=== PATIENT | male | born 1975 | race Caucasian/White ===

== ENCOUNTER 2017-08-10 01:47 | Inpatient (IN) | payer BC, OTHER ==
[2017-08-10] MEDS ORDERED: PROPOFOL 0 ML ONE (01:53)
[2017-08-10] MEDS ORDERED: Ondansetron ODT 4 MG TAB ONE (01:55)
[2017-08-10] MEDS ORDERED: Fentanyl 100 MCG/2 ML VIAL ONE ×4 (01:55→22:48)
[2017-08-10] MEDS ORDERED: Propofol 1,000 MG/100 ML VIAL IV ONE (01:58)
[2017-08-10] MEDS ORDERED: fentaNYL Citrate/PF 2,000 MCG in Sodium Chloride 0.9% 60 ML IV SCH (02:07)
[2017-08-10 02:18] LABS: Hemoglobin 13.7 g/dL (14.0-18.0); Mean Corpuscular Hemoglobin 37.2 pg (27.0-31.0); Mean Platelet Volume 7.1 fL (7.4-10.4); Platelet Count 272 thou/uL (130-400); RBC Distribution Width 13.1 % (11.5-14.5); Red Blood Cell (RBC) Count 3.69 mill/uL (4.70-6.10); White Blood Cell (WBC) Count 10.1 thou/uL (4.8-10.8)
[2017-08-10 02:27] LABS: PTT 23.1 SEC (22.9-36.1); Prothrombin Time 13.5 SEC (12.0-14.7)
[2017-08-10 02:41] LABS: #Eosinphils 0.1 thou/uL (0.0-0.7); #Lymphocytes 1.1 thou/uL (1.20-3.40); #Monocytes 0.8 thou/uL (0.11-0.59); #Neutrophils 8.1 thou/uL (1.40-6.50); %Basophils 0.2 % (0.0-1.0); %Eosinophils 0.5 % (0.0-10.0); %Lymphocytes 10.7 % (21.0-51.0); %Monocytes 8.3 % (0.0-10.0); %Neutrophils 80.4 % (42.0-75.0)
[2017-08-10 02:43] LABS: Base Excess (BEa) -7.8 mEq/L (-2.0 to +3.0); CO2 Tension 43.1 mmHg (35.0-45.0); Hematocrit-ABG 39.4 % (42.0-52.0); Hemoglobin (Hb) 12.7 g/dL (14.0-18.0); O2 Tension (PaO2) 121.7 mmHg (80.0-100.0); pH, Arterial 7.26 (7.35-7.45)
[2017-08-10 02:44] LABS: ALV-art Gradient 180.925 (0-20); Analyzer IN Cardio ER; Calcium, Ionized 1.2 mmol/L (1.12-1.30); Puncture Site LRA
[2017-08-10 03:04] LABS: ALT (SGPT) 57 U/L (8-55); AST (SGOT) 167 U/L (5-34); Albumin 3.4 g/dL (3.5-5.0); Alcohol 166 mg/dL (Less than 10); Alkaline Phosphatase 52 U/L (40-150); Anion Gap 14 mmol/L (10-20); BUN (Urea Nitrogen) 12 mg/dL (8.9-20.6); Bilirubin, Total 0.3 mg/dL (0.2-1.2); CK (CPK) 850 U/L (30-200); Calc. Creatinine Clearance 0 mL/min (70-130); Calcium 7.9 mg/dL (7.8-10.44); Carbon Dioxide 17 mmol/L (22-29); Chloride 113 mmol/L (98-107); Estimated GFR-MDRD 54; Globulin 2.3 g/dL (2.4-3.5); Glucose 123 mg/dL (70-105); Lipase 16 U/L (8-78); Potassium 3.4 mmol/L (3.5-5.1); Protein, Total 5.7 g/dL (6.0-8.3); Sodium 141 mmol/L (136-145)
[2017-08-10] MEDS ORDERED: Dextrose 50% Abboject 50 ML SYRINGE SLOW IVP PRN (03:05)
[2017-08-10] MEDS ORDERED: Dextrose 5% in Water 1,000 ML IV PRN (03:05)
[2017-08-10] MEDS ORDERED: Morphine 4 MG/ML Carpuject IVP PRN (03:05)
[2017-08-10] MEDS ORDERED: Ventilator Sedation Protocol 1 EACH FS SCH (03:15)
[2017-08-10] MEDS ORDERED: Fentanyl BOLUS 250 ML IVPB PRN (03:17)
[2017-08-10] MEDS ORDERED: Morphine 4 MG/ML VIAL SLOW IVP PRN (03:17)
[2017-08-10] MEDS ORDERED: DISCONTINUE PREVIOUS NARCOTIC PAIN MEDICATIONS AND BENZODIAZEPINES FS SCH (03:17)
[2017-08-10] MEDS ORDERED: Lorazepam 2 MG/ML VIAL SLOW IVP PRN (03:17)
[2017-08-10] MEDS ORDERED: Propofol BOLUS 1,000 MG/100 ML VIAL IV PRN (03:17)
[2017-08-10] MEDS ORDERED: Propofol 1,000 MG/100 ML VIAL IV PRN (03:17)
[2017-08-10] MEDS ORDERED: Midazolam HCl 5 mg/ml Vial ONE (03:29)
[2017-08-10] MEDS ORDERED: Potassium Chloride 20 MEQ in Lactated Ringer's 1,000 ML IVPB SCH (03:30)
[2017-08-10 03:32] LABS: Bilirubin Negative (Negative); Blood, Urine Large (Negative); Clarity CLEAR (Clear); Glucose, Urine (Dipstick) Negative (Negative); Leukocyte Negative (Negative); Nitrite Negative (Negative); Protein, Urine (Dipstick) 30 mg/dL (Neg-Trace); Specific Gravity, Urine 1.005 (1.002-1.036); Urobilinogen 0.2 mg/dL (0.2-1.0)
[2017-08-10 03:47] LABS: Bacteria/HPF Rare-Few HPF (None Seen); Crystals/HPF 1+ AMORPH URATES HPF (Negative); Hyaline Casts/LPF NONE SEEN LPF (0-3 Hyaline); Medtox Reader # READER 4; RBC/HPF 0-3 HPF (0-3); Squamous Epithelial 0-3 HPF (0-3); WBC/HPF 0-3 HPF (0-3)
[2017-08-10 03:48] LABS: Amphetamine Not Detected (NotDetected); Barbiturates Screen Not Detected (NotDetected); Benzodiazepine Screen Not Detected (NotDetected); Cocaine Metabolite Screen Not Detected (NotDetected); Medtox Control Line Valid? VALID (VALID); Methadone Not Detected (NotDetected); Methamphetamine Not Detected (NotDetected); Opiate Screen Detected (NotDetected); Oxycodone Screen Not Detected (NotDetected); Phencyclidine (PCP) Not Detected (NotDetected); THC/Cannabinoid Screen Not Detected (NotDetected); Tricyclic Screen Not Detected (NotDetected)
[2017-08-10 03:56] LABS: #Lymphocytes 0.7 thou/uL (1.20-3.40); #Monocytes 1.2 thou/uL (0.11-0.59); #Neutrophils 8.6 thou/uL (1.40-6.50); %Basophils 0.2 % (0.0-1.0); %Eosinophils 0.4 % (0.0-10.0); %Lymphocytes 6.7 % (21.0-51.0); %Monocytes 11.7 % (0.0-10.0); Hemoglobin 12.9 g/dL (14.0-18.0); Mean Corpuscular Hemoglobin 37.3 pg (27.0-31.0); Mean Platelet Volume 7.1 fL (7.4-10.4); Platelet Count 246 thou/uL (130-400); RBC Distribution Width 13.1 % (11.5-14.5); Red Blood Cell (RBC) Count 3.45 mill/uL (4.70-6.10); White Blood Cell (WBC) Count 10.6 thou/uL (4.8-10.8)
[2017-08-10 04:13] LABS: Anion Gap 19 mmol/L (10-20); BUN (Urea Nitrogen) 12 mg/dL (8.9-20.6); Calc. Creatinine Clearance 0 mL/min (70-130); Calcium 8.9 mg/dL (7.8-10.44); Carbon Dioxide 15 mmol/L (22-29); Chloride 111 mmol/L (98-107); Estimated GFR-MDRD 50; Glucose 128 mg/dL (70-105); Potassium 3.8 mmol/L (3.5-5.1); Sodium 141 mmol/L (136-145)
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
[2017-08-10] MEDS: Albuterol Sulfate 1.25 MG/3 ML NEB NEB SCH ×5 (06:30→22:00)
[2017-08-10 07:00] LABS: Actual Bicarbonate (HCO3a) 16.6 mEq/L (22-28); CO2 Tension 34.7 mmHg (35.0-45.0); Hematocrit-ABG 35.7 % (42.0-52.0); O2 Tension (PaO2) 167.4 mmHg (80.0-100.0)
[2017-08-10 07:01] LABS: ALV-art Gradient 74.425 (0-20); Calcium, Ionized 1.1 mmol/L (1.12-1.30); Hemoglobin (Hb) 11.7 g/dL (14.0-18.0); Puncture Site ALINE
[2017-08-10 07:16] VITALS: BMI 32.3
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
[2017-08-10] MEDS ORDERED: Sodium Bicarbonate 100 MEQ in Dextrose 5% in Water 1,000 ML IV SCH (08:15)
[2017-08-10] MEDS ORDERED: DC Sedation Protocol FS ONE (09:04)
[2017-08-10] MEDS ORDERED: Communication Order-Pharmacy FS SCH (09:15)
[2017-08-10] MEDS ORDERED: Zolpidem Tartrate 5 MG TAB PO PRN (09:15)
[2017-08-10] MEDS ORDERED: diphenhydrAMINE 25 MG CAP PO PRN (09:15)
[2017-08-10] MEDS ORDERED: Ondansetron HCl/PF 4 MG/2 ML Vial IVP PRN ×2 (09:15→21:15)
[2017-08-10] MEDS ORDERED: Promethazine HCl 25 MG/ML VIAL IM PRN ×2 (09:15→21:15)
[2017-08-10] MEDS ORDERED: diphenhydrAMINE 50 MG/ML VIAL IM/IV PRN (09:15)
[2017-08-10] MEDS ORDERED: Naloxone HCl 0.4 mg/ml Vial IV PRN (09:15)
[2017-08-10] MEDS ORDERED: diphenhydrAMINE 50 MG/ML VIAL IM PRN (09:15)
[2017-08-10] MEDS ORDERED: Rib Fracture Protocol IV SCH (09:15)
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
--- NOTE | 2017-08-10 09:22 | RAD ---
PORTABLE SUPINE FRONTAL CHEST RADIOGRAPH: Date: 08-10-17 Time: 2:28 a.m. Comparison: 08-10-17 at 1:51 a.m. History: Central line placement. FINDINGS: Endotracheal tube terminates at level of clavicles. Nasogastric tube extends into the left upper quad rant, with distal tip in the region of the gastric fundus. Left sided vascular catheter present, dist al tip overlying the region of the right atrium. Hazy airspace disease noted in both lung bases which may represent contusion or volume loss. Osseous structures are not optimally assessed on this examin ation. Please refer to CT examination of the chest also performed 08-10-17. IMPRESSION: Bibasilar pulmonary parenchymal opacity. Lines and tubes as above. POS: [facility]
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
[2017-08-10] MEDS: HYDROmorphone 10 mg/100 ml CADD IVPB PRN ×2 (10:42→23:47)
[2017-08-10] MEDS: Sodium Bicarbonate 100 MEQ in Dextrose 5% in Water 1,000 ML IV SCH ×2 (10:43→17:05)
[2017-08-10] MEDS: Famotidine/PF 20 mg/2ml Vial SLOW IVP SCH (11:05)
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
[2017-08-10] MEDS: Acetaminophen 1,000 MG in Premix Bag 1 BAG IVPB SCH ×3 (11:30→23:53)
[2017-08-10] MEDS ORDERED: Lidocaine 1% PF 5 ML VIAL ONE (12:44)
[2017-08-10] MEDS ORDERED: Ondansetron HCl/PF 4 MG/2 ML Vial ONE (12:44)
[2017-08-10] MEDS ORDERED: PROPOFOL 200 MG/20 ML VIAL ONE (12:44)
[2017-08-10] MEDS ORDERED: Metoclopramide HCl 10 MG/2 ML VIAL ONE (12:44)
[2017-08-10] MEDS ORDERED: Glycopyrrolate 0.2 MG/ML 5 ML SYRINGE ONE (12:44)
[2017-08-10] MEDS ORDERED: Ketorolac Tromethamine 30 MG/ML VIAL ONE (12:44)
[2017-08-10] MEDS ORDERED: Dexamethasone 20 MG/5 ML VIAL ONE (12:44)
[2017-08-10] MEDS ORDERED: PHENYLEPHRINE-NS 100 MCG/ML 10 ML SYRINGE ONE ×3 (12:44→21:15)
[2017-08-10] MEDS ORDERED: Fentanyl 250 MCG/5 ML VIAL ONE (19:43)
[2017-08-10] MEDS ORDERED: Midazolam HCl 5 mg/5 ml Vial ONE (19:43)
[2017-08-10] MEDS ORDERED: Phenylephrine HCL 10 MG/ML VIAL ONE (20:46)
[2017-08-10] MEDS ORDERED: Meperidine HCl/PF 25 MG/ML VIAL SLOW IVP PRN (21:15)
[2017-08-10] MEDS ORDERED: Morphine Sulfate 2 MG/ML SYRINGE SLOW IVP PRN (21:15)
[2017-08-10] MEDS ORDERED: HYDROmorphone 2 MG/ML VIAL SLOW IVP PRN (21:15)
[2017-08-10] MEDS ORDERED: Promethazine HCl 25 MG/ML VIAL SLOW IVP PRN (21:15)
[2017-08-11] MEDS: Famotidine/PF 20 mg/2ml Vial SLOW IVP SCH ×3 (00:22→21:01)
[2017-08-11] MEDS: Albuterol Sulfate 1.25 MG/3 ML NEB NEB SCH ×6 (02:12→22:30)
[2017-08-11] MEDS: CEFAZOLIN/Water 2 GM/20 ML SYRINGE SLOW IVP SCH ×2 (03:27→12:06)
[2017-08-11 05:18] LABS: Anion Gap 13 mmol/L (10-20); BUN (Urea Nitrogen) 13 mg/dL (8.9-20.6); Calc. Creatinine Clearance 94 mL/min (70-130); Calcium 8.3 mg/dL (7.8-10.44); Carbon Dioxide 26 mmol/L (22-29); Chloride 106 mmol/L (98-107); Estimated GFR-MDRD 49; Glucose 175 mg/dL (70-105); Potassium 4.1 mmol/L (3.5-5.1); Sodium 141 mmol/L (136-145)
[2017-08-11 05:27] LABS: #Lymphocytes 0.2 thou/uL (1.20-3.40); #Monocytes 0.8 thou/uL (0.11-0.59); #Neutrophils 7.7 thou/uL (1.40-6.50); %Basophils 0.2 % (0.0-1.0); %Eosinophils 0.1 % (0.0-10.0); %Lymphocytes 2.3 % (21.0-51.0); %Monocytes 8.9 % (0.0-10.0); %Neutrophils 88.5 % (42.0-75.0); Hemoglobin 10.8 g/dL (14.0-18.0); Mean Corpuscular HGB CONC 34.7 g/dL (32.0-36.0); Mean Corpuscular Hemoglobin 38.3 pg (27.0-31.0); Mean Platelet Volume 7.5 fL (7.4-10.4); Platelet Count 199 thou/uL (130-400); RBC Distribution Width 13.2 % (11.5-14.5); Red Blood Cell (RBC) Count 2.83 mill/uL (4.70-6.10); White Blood Cell (WBC) Count 8.7 thou/uL (4.8-10.8)
[2017-08-11] MEDS: Sodium Bicarbonate 100 MEQ in Dextrose 5% in Water 1,000 ML IV SCH (05:48)
[2017-08-11] MEDS: Acetaminophen 1,000 MG in Premix Bag 1 BAG IVPB SCH (05:48)
--- NOTE | 2017-08-11 08:34 | RAD ---
RIGHT FEMUR TWO VIEWS: History: Intramedullary nail placement. Comparison: Radiograph same day. FINDINGS: Satisfactory appearance of intermedullary nail through the right femur. IMPRESSION: Satisfactory post-operative appearance. POS: [facility]
--- NOTE | 2017-08-11 08:49 | RAD ---
PORTABLE CHEST: History: Respiratory distress, pulmonary contusion. Comparison: 08-10-17 FINDINGS: Endotracheal and NG tubes have been removed. Left subclavian line is unchanged in position. Bibasilar lung changes show improvement as compared to the prior exam. IMPRESSION: Improving bibasilar lung change. POS: [facility]
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
[2017-08-11] MEDS ORDERED: HYDROmorphone 10 mg/100 ml CADD IVPB PRN (09:52)
[2017-08-11] MEDS ORDERED: Acetaminophen 500 MG TAB PO SCH (10:00)
[2017-08-11] MEDS ORDERED: Sodium Chloride 0.9% 1,000 ML IV SCH (10:00)
[2017-08-11] MEDS: HYDROcodone/Acetaminophen 10/325 mg Tablet PO SCH ×3 (12:05→23:18)
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
--- NOTE | 2017-08-11 15:29 | MRI ---
MR ANGIOGRAM BRAIN WITHOUT CONTRAST: HISTORY: Evaluate for carotid injury. COMPARISON: CT brain from the prior day. TECHNIQUE: MR angiogram of the brain is performed using the [id number] technique, and 3D rendering is provid ed. FINDINGS: The cap[place] band of [place] is patent. No evidence of dissection. No thrombosis. No hemodynamically signi ficant narrowing. The basilar artery is patent. Intradural vertebral arteries are patent and codominant. IMPRESSION: No evidence of vascular injury. POS: [facility]
[2017-08-11] MEDS ORDERED: Loratadine 10 MG TAB PO SCH (15:45)
[2017-08-11] MEDS: Doxepin HCl 25 MG CAP PO SCH (21:00)
[2017-08-12] MEDS: Albuterol Sulfate 1.25 MG/3 ML NEB NEB SCH ×6 (02:34→23:52)
[2017-08-12] MEDS ORDERED: Oxazepam 10 MG CAP PO SCH (04:30)
[2017-08-12 04:35] LABS: Anion Gap 16 mmol/L (10-20); BUN (Urea Nitrogen) 16 mg/dL (8.9-20.6); Calc. Creatinine Clearance 107 mL/min (70-130); Calcium 8.9 mg/dL (7.8-10.44); Carbon Dioxide 21 mmol/L (22-29); Chloride 109 mmol/L (98-107); Estimated GFR-MDRD 57; Glucose 113 mg/dL (70-105); Potassium 4.7 mmol/L (3.5-5.1); Sodium 141 mmol/L (136-145)
[2017-08-12 05:42] LABS: Band 3 % (5-11); Eosinophils 1 % (0-10); Hemoglobin 10.6 g/dL (14.0-18.0); Lymphocytes 14 % (21-51); MDiff Complete? YES; Macrocytosis MODERATE=16-30 cells (100X) (0-5/hpf); Mean Corpuscular HGB CONC 32.5 g/dL (32.0-36.0); Mean Corpuscular Hemoglobin 35.8 pg (27.0-31.0); Mean Platelet Volume 8.1 fL (7.4-10.4); Monocytes 11 % (0-10); Neutrophil 70 % (42-75); PLT Morphology Comment Appears Adequate; Platelet Count 172 thou/uL (130-400); RBC Distribution Width 13.4 % (11.5-14.5); Reactive Lymphocytes 1 % (0-10); Red Blood Cell (RBC) Count 2.97 mill/uL (4.70-6.10); White Blood Cell (WBC) Count 8.4 thou/uL (4.8-10.8)
[2017-08-12] MEDS: HYDROcodone/Acetaminophen 10/325 mg Tablet PO SCH ×4 (07:05→23:56)
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
[2017-08-12] MEDS: DULoxetine 60 MG CAP PO SCH (09:31)
[2017-08-12] MEDS: Multivitamin W/ Minerals 1 TAB PO SCH (09:31)
[2017-08-12] MEDS: Folic Acid 1 MG TAB PO SCH (09:31)
[2017-08-12] MEDS: Loratadine 10 MG TAB PO SCH (09:31)
[2017-08-12] MEDS: Senokot S 8.6-50 MG TAB PO SCH ×2 (09:41→22:34)
[2017-08-12] MEDS: Polyethylene Glycol 3350 17 GM Packet PO SCH (09:44)
[2017-08-12] MEDS: Famotidine/PF 20 mg/2ml Vial SLOW IVP SCH (09:45)
[2017-08-12] MEDS: Oxazepam 10 MG CAP PO SCH ×3 (11:50→23:56)
[2017-08-12] MEDS: Famotidine 20 MG TAB PO SCH ×2 (11:51→22:31)
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
[2017-08-12] MEDS: Doxepin HCl 25 MG CAP PO SCH (22:31)
[2017-08-13] MEDS ORDERED: Lactated Ringer's 1,000 ML IV SCH (00:01)
[2017-08-13] MEDS: Sodium Chloride 0.9% 1,000 ML IV SCH ×2 (01:06→09:11)
[2017-08-13] MEDS: Albuterol Sulfate 1.25 MG/3 ML NEB NEB SCH ×6 (02:30→22:43)
[2017-08-13 05:04] LABS: #Eosinphils 0.2 thou/uL (0.0-0.7); #Lymphocytes 0.8 thou/uL (1.20-3.40); #Monocytes 0.7 thou/uL (0.11-0.59); #Neutrophils 3.3 thou/uL (1.40-6.50); %Basophils 0.2 % (0.0-1.0); %Eosinophils 3.1 % (0.0-10.0); %Lymphocytes 15.9 % (21.0-51.0); %Monocytes 14.5 % (0.0-10.0); %Neutrophils 66.3 % (42.0-75.0); Hemoglobin 10.1 g/dL (14.0-18.0); Mean Corpuscular Hemoglobin 37.1 pg (27.0-31.0); Mean Platelet Volume 7.2 fL (7.4-10.4); Platelet Count 198 thou/uL (130-400); Red Blood Cell (RBC) Count 2.72 mill/uL (4.70-6.10)
[2017-08-13 05:16] LABS: Anion Gap 13 mmol/L (10-20); BUN (Urea Nitrogen) 16 mg/dL (8.9-20.6); Calc. Creatinine Clearance 130 mL/min (70-130); Calcium 9.4 mg/dL (7.8-10.44); Carbon Dioxide 25 mmol/L (22-29); Chloride 106 mmol/L (98-107); Estimated GFR-MDRD 71; Glucose 104 mg/dL (70-105); Magnesium 1.9 mg/dL (1.6-2.6); Phosphorus 2.5 mg/dL (2.3-4.7); Sodium 140 mmol/L (136-145)
[2017-08-13] MEDS ORDERED: Ropivacaine 0.2% HCl/PF 20 ML ONE (06:26)
[2017-08-13] MEDS ORDERED: Ropivacaine 0.2% HCl/PF 0 ML ONE (06:26)
[2017-08-13] MEDS ORDERED: Midazolam HCl 2 mg/2 ml Vial ONE (06:26)
[2017-08-13] MEDS ORDERED: Fentanyl 100 MCG/2 ML VIAL ONE ×2 (06:26→13:05)
[2017-08-13] MEDS ORDERED: Fentanyl 250 MCG/5 ML VIAL ONE (06:59)
[2017-08-13] MEDS ORDERED: CEFAZOLIN/Water 2 GM/20 ML SYRINGE ONE (07:06)
[2017-08-13] MEDS: HYDROcodone/Acetaminophen 10/325 mg Tablet PO SCH ×3 (07:29→18:20)
[2017-08-13] MEDS: Oxazepam 10 MG CAP PO SCH ×5 (07:29→19:28)
[2017-08-13] MEDS ORDERED: CEFAZOLIN/Water 2 GM/20 ML SYRINGE SLOW IVP SCH ×2 (07:30→14:00)
[2017-08-13] MEDS ORDERED: Promethazine HCl 25 MG/ML VIAL SLOW IVP PRN (08:20)
[2017-08-13] MEDS ORDERED: Ondansetron HCl/PF 4 MG/2 ML Vial IVP PRN (08:20)
[2017-08-13] MEDS ORDERED: Promethazine HCl 25 MG/ML VIAL IM PRN (08:20)
[2017-08-13] MEDS ORDERED: PHENYLEPHRINE-NS 100 MCG/ML 10 ML SYRINGE ONE ×5 (08:54→15:47)
[2017-08-13] MEDS ORDERED: Albumin 25% 100 ML ONE (08:56)
[2017-08-13] MEDS: Famotidine 20 MG TAB PO SCH ×2 (09:12→20:33)
[2017-08-13] MEDS: DULoxetine 60 MG CAP PO SCH ×2 (09:12→15:45)
[2017-08-13] MEDS: Loratadine 10 MG TAB PO SCH (09:12)
[2017-08-13] MEDS: Folic Acid 1 MG TAB PO SCH (09:12)
[2017-08-13] MEDS: Senokot S 8.6-50 MG TAB PO SCH ×2 (09:13→20:32)
[2017-08-13] MEDS: Multivitamin W/ Minerals 1 TAB PO SCH (09:13)
[2017-08-13] MEDS: Polyethylene Glycol 3350 17 GM Packet PO SCH (09:13)
[2017-08-13 10:38] LABS: #Eosinphils 0.1 thou/uL (0.0-0.7); #Lymphocytes 0.3 thou/uL (1.20-3.40); #Monocytes 0.6 thou/uL (0.11-0.59); #Neutrophils 3.6 thou/uL (1.40-6.50); %Basophils 0.6 % (0.0-1.0); %Eosinophils 1.7 % (0.0-10.0); %Lymphocytes 6.6 % (21.0-51.0); %Monocytes 12.4 % (0.0-10.0); %Neutrophils 78.8 % (42.0-75.0); Hemoglobin 7.4 g/dL (14.0-18.0); Mean Corpuscular HGB CONC 34.2 g/dL (32.0-36.0); Mean Corpuscular Hemoglobin 37.5 pg (27.0-31.0); Mean Platelet Volume 6.5 fL (7.4-10.4); Platelet Count 175 thou/uL (130-400); Red Blood Cell (RBC) Count 1.98 mill/uL (4.70-6.10); White Blood Cell (WBC) Count 4.5 thou/uL (4.8-10.8)
[2017-08-13] MEDS ORDERED: Phenylephrine HCL 10 MG/ML VIAL ONE (10:55)
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
--- NOTE | 2017-08-13 13:20 | RAD ---
RIGHT HIP 3 VIEWS: Date: 08/13/17 Three fluoroscopic views from OR present. INDICATION: Open reduction and internal fixation right acetabulum. FINDINGS/IMPRESSION: These films show plate and screws transfixing the right acetabulum. POS: [facility]
--- NOTE | 2017-08-13 13:22 | RAD ---
RIGHT HUMERUS: Date: 08/13/17 Two fluoroscopic views obtained in OR. INDICATION: Open reduction and internal fixation of right humerus with intraoperative imaging. FINDINGS/IMPRESSION: These films demonstrate plate and screws transfixing the proximal right humerus. POS: [facility]
[2017-08-13] MEDS ORDERED: Chloraseptic Spray 180 ml Bottle PO PRN (13:56)
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
[2017-08-13] MEDS: HYDROcodone/Acetaminophen 10/325 mg Tablet PO PRN (15:21)
[2017-08-13] MEDS ORDERED: Glycopyrrolate 0.2 MG/ML 5 ML SYRINGE ONE (15:47)
[2017-08-13] MEDS ORDERED: PROPOFOL 200 MG/20 ML VIAL ONE (15:47)
[2017-08-13] MEDS ORDERED: Vecuronium 10 MG VIAL ONE (15:47)
[2017-08-13] MEDS ORDERED: Hydrocortisone Sod Succ/PF 100 mg/2 ml Vial ONE (15:47)
[2017-08-13] MEDS ORDERED: Lidocaine 1% PF 5 ML VIAL ONE (15:47)
[2017-08-13] MEDS: CEFAZOLIN/Water 2 GM/20 ML SYRINGE SLOW IVP SCH (17:49)
[2017-08-13] MEDS ORDERED: cloNIDine 0.1 MG TAB PO SCH ×2 (19:00→23:59)
[2017-08-13] MEDS ORDERED: cloNIDine 0.2 MG TAB PO SCH (19:15)
--- NOTE | 2017-08-13 19:19 | CT ---
CT OF THE PELVIS 08/13/17 COMPARISON: 08/10/17 HISTORY: Pelvic fractures status post surgery. TECHNIQUE: Serial axial CT imaging at 3.75 mm intervals through the pelvis without contrast. Coronal and sagitta l reformatted imaging obtained. FINDINGS: Cutaneous meng are noted lateral to the right buttock musculature and proximal femur. There is pos toperative gas within the adjacent musculature and subcutaneous fat. As seen on prior imaging, the left ureter is dilated and demonstrates an anterior aberrant course. The urinary bladder contains a Briggs catheter and is decompressed. The imaged bowel demonstrates no acute findings. There is no widening of the pubic symphysis. The inferior pubic rami appear intact. There is no evide nce for widening of either sacroiliac joint. There is lower lumbar spine facet hypertrophy. No displa sandee sacral fracture is evident. There is an obliquely oriented fracture involving the acetabulum on the right which is comminuted and demonstrates no displacement following surgical correction. There is postoperative hardware associat ed with the anterior and posterior aspect of the acetabulum as well as the lateral acetabulum on the left. There is also an intramedullary narinder with a proximal interlocking screw within the right proxima l femur. Neither hip is dislocated. IMPRESSION: Right sided pelvic fractures status post ORIF as detailed above. POS: [facility]
[2017-08-13] MEDS: Doxepin HCl 25 MG CAP PO SCH (20:33)
[2017-08-14] MEDS: HYDROcodone/Acetaminophen 10/325 mg Tablet PO SCH ×5 (00:09→18:38)
[2017-08-14] MEDS: CEFAZOLIN/Water 2 GM/20 ML SYRINGE SLOW IVP SCH (00:09)
[2017-08-14] MEDS: cloNIDine 0.1 MG TAB PO SCH ×4 (00:14→18:38)
[2017-08-14] MEDS: Oxazepam 10 MG CAP PO SCH ×6 (00:24→22:05)
[2017-08-14] MEDS: Albuterol Sulfate 1.25 MG/3 ML NEB NEB SCH ×6 (01:48→22:35)
[2017-08-14] MEDS: HYDROcodone/Acetaminophen 10/325 mg Tablet PO PRN (02:56)
[2017-08-14 05:43] LABS: Anion Gap 14 mmol/L (10-20); BUN (Urea Nitrogen) 18 mg/dL (8.9-20.6); Calc. Creatinine Clearance 140 mL/min (70-130); Calcium 8.3 mg/dL (7.8-10.44); Carbon Dioxide 23 mmol/L (22-29); Chloride 104 mmol/L (98-107); Estimated GFR-MDRD 77; Glucose 121 mg/dL (70-105); Magnesium 1.7 mg/dL (1.6-2.6); Phosphorus 2.6 mg/dL (2.3-4.7); Potassium 3.9 mmol/L (3.5-5.1); Sodium 137 mmol/L (136-145)
[2017-08-14 06:10] LABS: Anisocytosis SLIGHT = 6-15 cells (100X) (0-5/hpf); Band 10 % (5-11); Hemoglobin 9.1 g/dL (14.0-18.0); Lymphocytes 15 % (21-51); MDiff Complete? YES; Macrocytosis MODERATE=16-30 cells (100X) (0-5/hpf); Mean Corpuscular HGB CONC 34.7 g/dL (32.0-36.0); Mean Corpuscular Hemoglobin 35.7 pg (27.0-31.0); Mean Platelet Volume 6.9 fL (7.4-10.4); Monocytes 16 % (0-10); Neutrophil 59 % (42-75); PLT Morphology Comment Appears Adequate; Platelet Count 154 thou/uL (130-400); RBC Distribution Width 15.4 % (11.5-14.5); Red Blood Cell (RBC) Count 2.55 mill/uL (4.70-6.10); White Blood Cell (WBC) Count 5.4 thou/uL (4.8-10.8)
[2017-08-14] MEDS: Multivitamin W/ Minerals 1 TAB PO SCH (08:18)
[2017-08-14] MEDS: Enoxaparin Sodium 40 MG/0.4 ML SYRINGE SC SCH (08:18)
[2017-08-14] MEDS: Senokot S 8.6-50 MG TAB PO SCH ×2 (08:18→22:05)
[2017-08-14] MEDS: Loratadine 10 MG TAB PO SCH (08:19)
[2017-08-14] MEDS: Folic Acid 1 MG TAB PO SCH (08:19)
[2017-08-14] MEDS: Famotidine 20 MG TAB PO SCH ×2 (08:19→22:05)
[2017-08-14] MEDS: DULoxetine 60 MG CAP PO SCH (08:19)
[2017-08-14] MEDS: Polyethylene Glycol 3350 17 GM Packet PO SCH (08:20)
[2017-08-14] MEDS: Bacitracin Zinc 1 Packet TOP SCH ×2 (16:53→22:05)
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
[2017-08-14] MEDS: Doxepin HCl 25 MG CAP PO SCH (22:05)
[2017-08-15] MEDS: HYDROcodone/Acetaminophen 10/325 mg Tablet PO SCH ×4 (00:02→18:08)
[2017-08-15] MEDS: cloNIDine 0.1 MG TAB PO SCH ×4 (00:04→18:11)
[2017-08-15] MEDS: Albuterol Sulfate 1.25 MG/3 ML NEB NEB SCH ×6 (02:32→23:19)
[2017-08-15 05:50] LABS: Anion Gap 10 mmol/L (10-20); BUN (Urea Nitrogen) 19 mg/dL (8.9-20.6); Calc. Creatinine Clearance 155 mL/min (70-130); Calcium 8.8 mg/dL (7.8-10.44); Carbon Dioxide 26 mmol/L (22-29); Chloride 103 mmol/L (98-107); Estimated GFR-MDRD 87; Glucose 109 mg/dL (70-105); Phosphorus 2.4 mg/dL (2.3-4.7); Potassium 3.9 mmol/L (3.5-5.1); Sodium 135 mmol/L (136-145)
[2017-08-15 06:09] LABS: Band 18 % (5-11); Eosinophils 2 % (0-10); Lymphocytes 17 % (21-51); MDiff Complete? YES; Mean Corpuscular HGB CONC 34.9 g/dL (32.0-36.0); Mean Corpuscular Hemoglobin 36.3 pg (27.0-31.0); Monocytes 14 % (0-10); Neutrophil 49 % (42-75); PLT Morphology Comment Appears Adequate; Platelet Count 175 thou/uL (130-400); RBC Distribution Width 15.4 % (11.5-14.5); Red Blood Cell (RBC) Count 2.48 mill/uL (4.70-6.10); White Blood Cell (WBC) Count 6.5 thou/uL (4.8-10.8)
[2017-08-15] MEDS: Folic Acid 1 MG TAB PO SCH (09:05)
[2017-08-15] MEDS: DULoxetine 60 MG CAP PO SCH (09:05)
[2017-08-15] MEDS: Oxazepam 10 MG CAP PO SCH ×3 (09:05→21:46)
[2017-08-15] MEDS: Senokot S 8.6-50 MG TAB PO SCH ×2 (09:05→21:46)
[2017-08-15] MEDS: Bacitracin Zinc 1 Packet TOP SCH ×3 (09:05→21:46)
[2017-08-15] MEDS: Famotidine 20 MG TAB PO SCH ×2 (09:05→21:46)
[2017-08-15] MEDS: Polyethylene Glycol 3350 17 GM Packet PO SCH (09:05)
[2017-08-15] MEDS: Multivitamin W/ Minerals 1 TAB PO SCH (09:05)
[2017-08-15] MEDS: Loratadine 10 MG TAB PO SCH (09:06)
[2017-08-15] MEDS: Enoxaparin Sodium 40 MG/0.4 ML SYRINGE SC SCH (09:06)
[2017-08-15] MEDS ORDERED: Melatonin 3 MG TAB PO PRN (09:53)
[2017-08-15] MEDS: Bisacodyl 10 MG SUPP PR SCH (11:24)
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
[2017-08-15] MEDS: HYDROcodone/Acetaminophen 10/325 mg Tablet PO PRN (21:45)
[2017-08-15] MEDS: Doxepin HCl 25 MG CAP PO SCH (21:46)
[2017-08-16] MEDS: cloNIDine 0.1 MG TAB PO SCH ×5 (00:09→23:49)
[2017-08-16] MEDS: HYDROcodone/Acetaminophen 10/325 mg Tablet PO SCH ×5 (00:39→23:50)
[2017-08-16] MEDS: Albuterol Sulfate 1.25 MG/3 ML NEB NEB SCH ×6 (01:01→23:18)
[2017-08-16] MEDS ORDERED: Budesonide 0.25 MG/2 ML NEB ONE (07:44)
[2017-08-16 08:27] LABS: Hemoglobin 9.6 g/dL (14.0-18.0); Mean Corpuscular Hemoglobin 35.6 pg (27.0-31.0); Platelet Count 249 thou/uL (130-400); RBC Distribution Width 14.8 % (11.5-14.5); Red Blood Cell (RBC) Count 2.69 mill/uL (4.70-6.10); White Blood Cell (WBC) Count 7.6 thou/uL (4.8-10.8)
[2017-08-16] MEDS: DULoxetine 60 MG CAP PO SCH (08:51)
[2017-08-16] MEDS: Senokot S 8.6-50 MG TAB PO SCH ×2 (08:51→21:00)
[2017-08-16] MEDS: Loratadine 10 MG TAB PO SCH (08:51)
[2017-08-16] MEDS: Folic Acid 1 MG TAB PO SCH (08:52)
[2017-08-16] MEDS: Multivitamin W/ Minerals 1 TAB PO SCH (08:53)
[2017-08-16] MEDS: Bacitracin Zinc 1 Packet TOP SCH ×3 (08:53→20:58)
[2017-08-16] MEDS: Famotidine 20 MG TAB PO SCH ×2 (08:53→20:58)
[2017-08-16] MEDS: Oxazepam 10 MG CAP PO SCH ×3 (08:53→20:59)
[2017-08-16] MEDS: Polyethylene Glycol 3350 17 GM Packet PO SCH (08:54)
[2017-08-16] MEDS: Bisacodyl 10 MG SUPP PR SCH (08:54)
[2017-08-16] MEDS: Enoxaparin Sodium 40 MG/0.4 ML SYRINGE SC SCH (08:54)
[2017-08-16 08:55] LABS: Anisocytosis SLIGHT = 6-15 cells (100X) (0-5/hpf); Band 5 % (5-11); Eosinophils 1 % (0-10); Lymphocytes 8 % (21-51); MDiff Complete? YES; Macrocytosis SLIGHT = 6-15 cells (100X) (0-5/hpf); Monocytes 4 % (0-10); Neutrophil 82 % (42-75); PLT Morphology Comment Appears Adequate
[2017-08-16 08:58] LABS: Anion Gap 12 mmol/L (10-20); BUN (Urea Nitrogen) 21 mg/dL (8.9-20.6); Calc. Creatinine Clearance 143 mL/min (70-130); Calcium 9.5 mg/dL (7.8-10.44); Carbon Dioxide 26 mmol/L (22-29); Chloride 102 mmol/L (98-107); Estimated GFR-MDRD 79; Glucose 122 mg/dL (70-105); Potassium 4.4 mmol/L (3.5-5.1); Sodium 136 mmol/L (136-145)
[2017-08-16] MEDS ORDERED: Albuterol Sulfate 1.25 MG/3 ML NEB ONE (10:26)
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
[2017-08-16] MEDS: Doxepin HCl 25 MG CAP PO SCH (20:59)
[2017-08-17] MEDS: Albuterol Sulfate 1.25 MG/3 ML NEB NEB SCH ×6 (02:30→23:04)
[2017-08-17] MEDS: HYDROcodone/Acetaminophen 10/325 mg Tablet PO PRN (03:57)
[2017-08-17] MEDS: HYDROcodone/Acetaminophen 10/325 mg Tablet PO SCH ×5 (05:46→21:50)
[2017-08-17] MEDS: cloNIDine 0.1 MG TAB PO SCH ×3 (05:46→18:12)
[2017-08-17] MEDS: Bacitracin Zinc 1 Packet TOP SCH ×3 (08:36→21:51)
[2017-08-17] MEDS: Loratadine 10 MG TAB PO SCH (08:36)
[2017-08-17] MEDS: DULoxetine 60 MG CAP PO SCH (08:36)
[2017-08-17] MEDS: Folic Acid 1 MG TAB PO SCH (08:36)
[2017-08-17] MEDS: Polyethylene Glycol 3350 17 GM Packet PO SCH (08:37)
[2017-08-17] MEDS: Oxazepam 10 MG CAP PO SCH ×3 (08:37→21:50)
[2017-08-17] MEDS: Senokot S 8.6-50 MG TAB PO SCH ×2 (08:37→21:50)
[2017-08-17] MEDS: Enoxaparin Sodium 40 MG/0.4 ML SYRINGE SC SCH (08:37)
[2017-08-17] MEDS: Multivitamin W/ Minerals 1 TAB PO SCH (08:37)
[2017-08-17] MEDS: Bisacodyl 10 MG SUPP PR SCH (08:38)
[2017-08-17] MEDS ORDERED: Melatonin 3 MG TAB PO PRN (08:55)
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
[2017-08-17] MEDS: Doxepin HCl 25 MG CAP PO SCH (21:50)
[2017-08-18] MEDS: cloNIDine 0.1 MG TAB PO SCH ×3 (00:40→12:41)
[2017-08-18] MEDS: HYDROcodone/Acetaminophen 10/325 mg Tablet PO SCH ×4 (00:42→12:41)
[2017-08-18] MEDS: Albuterol Sulfate 1.25 MG/3 ML NEB NEB SCH ×3 (04:45→11:09)
[2017-08-18] MEDS: Loratadine 10 MG TAB PO SCH (09:28)
[2017-08-18] MEDS: Multivitamin W/ Minerals 1 TAB PO SCH (09:28)
[2017-08-18] MEDS: Senokot S 8.6-50 MG TAB PO SCH (09:29)
[2017-08-18] MEDS: Bacitracin Zinc 1 Packet TOP SCH ×2 (09:29→15:28)
[2017-08-18] MEDS: Folic Acid 1 MG TAB PO SCH (09:29)
[2017-08-18] MEDS: Oxazepam 10 MG CAP PO SCH ×2 (09:29→14:55)
[2017-08-18] MEDS: DULoxetine 60 MG CAP PO SCH (09:30)
[2017-08-18] MEDS: Enoxaparin Sodium 40 MG/0.4 ML SYRINGE SC SCH (09:30)
[2017-08-18] MEDS: Polyethylene Glycol 3350 17 GM Packet PO SCH (09:30)
[2017-08-18] MEDS: HYDROcodone/Acetaminophen 10/325 mg Tablet PO PRN ×2 (11:13→14:57)
[2017-08-18] MEDS: Bisacodyl 10 MG SUPP PR SCH (11:17)
[2017-08-18 12:12] VITALS: BP 122/77; TEMP 98.5
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
[2017-08-18] MEDS ORDERED: Ibuprofen 800 MG TAB PO SCH (14:00)
== END 2017-08-18 15:20 | DRG 956 ==
LOC: ERS 01:47 → CCU 03:05 → SURG A 08-11 17:53
PROVIDERS: ADMIT Specialist; ATTEND Specialist
PROC: 0QS806Z Reposition Right Femoral Shaft with Intramedullary Internal Fixation Device, Open Approach (ICD-10-PCS; principal; 2017-08-10)
PROC: 0PSC04Z Reposition Right Humeral Head with Internal Fixation Device, Open Approach (ICD-10-PCS; 2017-08-10)
PROC: 0QS404Z Reposition Right Acetabulum with Internal Fixation Device, Open Approach (ICD-10-PCS; 2017-08-10)
PROC: 05H633Z Insertion of Infusion Device into Left Subclavian Vein, Percutaneous Approach (ICD-10-PCS; 2017-08-10)
PROC: 0BH17EZ Insertion of Endotracheal Airway into Trachea, Via Natural or Artificial Opening (ICD-10-PCS; 2017-08-10)
PROC: 5A1935Z Respiratory Ventilation, Less than 24 Consecutive Hours (ICD-10-PCS; 2017-08-10)
DX: S06.0X9A Concussion with loss of consciousness of unspecified duration, initial encounter (principal); S32.401A Unspecified fracture of right acetabulum, initial encounter for closed fracture; S72.301A Unspecified fracture of shaft of right femur, initial encounter for closed fracture; S22.43XA Multiple fractures of ribs, bilateral, initial encounter for closed fracture; S42.201A Unspecified fracture of upper end of right humerus, initial encounter for closed fracture; N17.9 Acute kidney failure, unspecified; S27.322A Contusion of lung, bilateral, initial encounter; V47.5XXA Car driver injured in collision with fixed or stationary object in traffic accident, initial encounter; Y92.410 Unspecified street and highway as the place of occurrence of the external cause; Y93.9 Activity, unspecified; Y99.9 Unspecified external cause status; S02.113A Unspecified occipital condyle fracture, initial encounter for closed fracture; E66.01 Morbid (severe) obesity due to excess calories; Z68.32 Body mass index [BMI] 32.0-32.9, adult; F10.129 Alcohol abuse with intoxication, unspecified; Y90.9 Presence of alcohol in blood, level not specified
CPT/HCPCS: 23600; 31500; 36415; 36416; 36430; 51702; 70450; 70544; 70547; 71045; 71250; 71260; 72125; 72141; 72170; 72192; 74177; 76001; 80048; 80053; 80306; 80307; 81003; 81015; 82550; 82805; 83605; 83690; 83735; 84100; 85007; 85025; 85027; 85610; 85730; 86850; 86900; 86901; 93005; 94002; 94640; 94760; 96361; 96365; 96375; 99292; C1713; C1769; G0390; G8981-GP-CN; G8982-GP-CL; G8987-GO-CM; G8988-GO-CK; J0131; J1100; J1650; J1720; J1885; J2001; J2250; J2270; J2370; J2405; J2704; J2765; J2795; J3010; J3480; J7050; J7070; J7120; J7626; L0172; L0174; P9016; P9047; Q0162; S0028

== ENCOUNTER 2020-05-20 19:30 | Outpatient (CLI) | payer OTHER | END 2020-05-20 19:31 | disposition home or self-care (01) | LOC: SLEEPLAB 19:30 | PROVIDERS: ATTEND Family Medicine | DX: G47.33 Obstructive sleep apnea (adult) (pediatric) (principal); G47.10 Hypersomnia, unspecified; F32.9 Major depressive disorder, single episode, unspecified; F41.9 Anxiety disorder, unspecified; I10 Essential (primary) hypertension; R53.83 Other fatigue; R06.83 Snoring; G47.00 Insomnia, unspecified | CPT/HCPCS: 95810 ==